=== PATIENT | male | born 1990 | race Caucasian/White ===

== ENCOUNTER 2022-05-21 09:41 | Emergency (ER) | payer MEDICAID, OTHER ==
[2022-05-21 09:59] VITALS: BP 152/89; PULSE 92
== END 2022-05-21 10:28 | disposition home or self-care (01) ==
LOC: MW.ED 09:41
DX: S46.212A Strain of muscle, fascia and tendon of other parts of biceps, left arm, initial encounter (principal); Z86.16 Personal history of COVID-19; X50.0XXA Overexertion from strenuous movement or load, initial encounter; Y92.89 Other specified places as the place of occurrence of the external cause; Y99.0 Civilian activity done for income or pay
CPT/HCPCS: 99283

== ENCOUNTER 2023-10-07 12:53 | Emergency (ER) | payer MEDICAID, OTHER ==
[2023-10-07] MEDS: Diphtheria,Pertussis(Acell),Tetanus Vaccine 0.5 ML Syringe IM ONE (13:17)
[2023-10-07] MEDS: Acetaminophen 500 MG Tab PO STA (13:47)
[2023-10-07] MEDS: Ibuprofen 800 MG Tab PO STA (13:48)
[2023-10-07 13:53] VITALS: BP 123/75; PULSE 64
== END 2023-10-07 13:54 | disposition home or self-care (01) ==
LOC: MW.ED 12:53
DX: S67.190A Crushing injury of right index finger, initial encounter (principal); Z75.8 Other problems related to medical facilities and other health care; Z86.16 Personal history of COVID-19; Z23 Encounter for immunization; W22.8XXA Striking against or struck by other objects, initial encounter; Y93.89 Activity, other specified; Y99.0 Civilian activity done for income or pay
CPT/HCPCS: 73140-26-F6; 73140-F6; 90471; 90715; 99283; 99283-25; A9270-GY